=== PATIENT | female | born 1980 | race Caucasian/White ===

== ENCOUNTER 2017-12-04 15:37 | Inpatient (IN) | payer OTHER ==
[~2017-12-04] VITALS: Ht 175.3 cm; Wt 95.5 kg
[~2017-12-04 15:37] MED LIST: BUPIVACAINE 0.25% ONE; FENTANYL PF 100 MCG/2ML ONE; FENTANYL/BUPIV./NS/PF 250 ML EPIDCONT ONE; LIDOCAINE/PF 1.5%-EPI 1:200K, 30ML ONE
[2017-12-04] MEDS ORDERED: D5%-LACTATED RINGERS 1,000 ML IV SCH (15:57)
[2017-12-04] MEDS: LACTATED RINGERS 1,000 ML IV SCH (15:57)
[2017-12-04] MEDS ORDERED: OXYTOCIN 30U/ 0.9% NaCL 500ML 500 ML IV ONE (15:57)
[2017-12-04 16:00] VITALS: BP 117/75
[2017-12-04] MEDS ORDERED: FENTANYL PF 100 MCG/2ML IV PRN (16:00)
[2017-12-04] MEDS ORDERED: ONDANSETRON 2MG/ML, 2ML IVPush PRN (16:00)
[2017-12-04] MEDS ORDERED: MISOPROSTOL 25 MCG TABLET VG PRN (16:00)
[2017-12-04] MEDS ORDERED: MISOPROSTOL 25 MCG TABLET ONE (16:15)
[2017-12-04 16:24] LABS: BASOPHILS # (AUTO) 0.06 x10^3/uL (0-0.1); BASOPHILS % (AUTO) 1 % (0-1); EOSINOPHILS # (AUTO) 0.04 x10^3/uL (0-0.4); EOSINOPHILS % (AUTO) 0 % (1-7); LYMPHOCYTES # (AUTO) 1.74 x10^3/uL (1-3.4); LYMPHOCYTES % (AUTO) 15 % (22-44); MD NO; MEAN CORPUSCULAR HEMOGLOBIN 31.7 pg (27.0-34.8); MEAN CORPUSCULAR HGB CONC 33.6 g/dL (32.4-35.8); MEAN CORPUSCULAR VOLUME 94.3 fL (80-100); MEAN PLATELET VOLUME 8.6 fL (7.4-10.4); MONOCYTES # (AUTO) 0.62 x10^3/uL (0.2-0.8); MONOCYTES % (AUTO) 6 % (2-9); NEUTROPHILS # (AUTO) 8.83 x10^3/uL (1.8-6.8); NEUTROPHILS % (AUTO) 78 % (42-75); PLATELET COUNT 233 x10^3/uL (130-400); RED BLOOD COUNT 3.84 x10^6/uL (3.82-5.3); RED CELL DISTRIBUTION WIDTH 13.6 % (9.6-15.2)
[2017-12-04] MEDS: PLEASE ENTER HEIGHT AND WEIGHT MC SCH (16:30)
[2017-12-04] MEDS: PLEASE ENTER ALLERGIES MC SCH (16:30)
[2017-12-04] MEDS ORDERED: OXYTOCIN 30U/ 0.9% NaCL 500ML 500 ML ONE (16:48)
[2017-12-04] MEDS ORDERED: NEWBORN KIT ONE (16:48)
[2017-12-04] MEDS ORDERED: MISOPROSTOL 200 MCG TABLET ONE (16:48)
[2017-12-04] MEDS ORDERED: PREN-3 PO (16:53)
[2017-12-04 19:21] VITALS: BP 123/74
[2017-12-04 19:37] LABS: ALANINE AMINOTRANSFERASE 13 U/L (12-78); ALBUMIN 2.6 g/dL (3.4-5.0); ANION GAP 12 mmol/L (5-15); CALCIUM 8.5 mg/dL (8.5-10.1); CHLORIDE 106 mmol/L (98-107); CREATININE 0.79 mg/dL (0.55-1.02)
[2017-12-04 19:40] LABS: ALKALINE PHOSPHATASE 182 U/L (45-117); BILIRUBIN,TOTAL 0.4 mg/dL (0.2-1.0); TOTAL PROTEIN 7.2 g/dL (6.4-8.2)
[2017-12-05] MEDS: PLEASE ENTER HEIGHT AND WEIGHT MC SCH ×2 (00:30→08:30)
[2017-12-05] MEDS: PLEASE ENTER ALLERGIES MC SCH ×2 (00:30→08:30)
[2017-12-05] MEDS ORDERED: FENTANYL PF 100 MCG/2ML ONE ×3 (05:09→07:12)
[2017-12-05] MEDS: FENTANYL PF 100 MCG/2ML IVPush PRN ×2 (05:14→06:34)
[2017-12-05] MEDS: LACTATED RINGERS 1,000 ML IV SCH ×4 (07:02→17:51)
[2017-12-05] MEDS ORDERED: FENTANYL/BUPIV./NS/PF 250 ML EPIDCONT ONE (07:12)
[2017-12-05] MEDS ORDERED: BUPIVACAINE 0.25% ONE (07:12)
[2017-12-05] MEDS ORDERED: FENTANYL/BUPIV./NS/PF 250 ML EPIDCONT SCH (09:51)
[2017-12-05] MEDS ORDERED: ONDANSETRON 2MG/ML, 2ML IVPush PRN (10:00)
[2017-12-05] MEDS ORDERED: EPHEDRINE 50 MG/ML, 1ML IVPush PRN (10:00)
[2017-12-05] MEDS ORDERED: LACTATED RINGERS 1,000 ML IVBOLUS PRN (10:00)
[2017-12-05] MEDS ORDERED: OXYcodone/APAP 5/325MG TABLET PO PRN ×2 (16:00)
[2017-12-05] MEDS ORDERED: CARBOPROST TROMETHAMINE 250 MCG/ML, 1ML IM PRN (16:00)
[2017-12-05] MEDS ORDERED: MISOPROSTOL 200 MCG TABLET PR PRN (16:00)
[2017-12-05] MEDS ORDERED: ACETAMINOPHEN 325 MG TABLET PO PRN (16:00)
[2017-12-05] MEDS ORDERED: DIPH,PERTUSS(ACELL),TET VAC/PF NC IM-VACC PRN (16:00)
[2017-12-05] MEDS ORDERED: MEASLES,MUMPS&RUBELLA VACC/PF 0.5 ML SQ-VACC PRN (16:00)
[2017-12-05] MEDS ORDERED: OXYTOCIN 30U/ 0.9% NaCL 500ML 500 ML ONE (17:09)
[2017-12-05] MEDS: OXYTOCIN 30U/ 0.9% NaCL 500ML 500 ML IV SCH (17:11)
[2017-12-05 18:00] VITALS: BP 120/78
[2017-12-05] MEDS: IBUPROFEN 600 MG TABLET PO PRN (18:19)
[2017-12-05 19:15] VITALS: BP 121/75
[2017-12-05 20:30] VITALS: BP 103/64
[2017-12-05 23:19] LABS: MEAN CORPUSCULAR HEMOGLOBIN 31.8 pg (27.0-34.8); MEAN CORPUSCULAR VOLUME 93.8 fL (80-100); MEAN PLATELET VOLUME 8.2 fL (7.4-10.4); PLATELET COUNT 184 x10^3/uL (130-400); RED CELL DISTRIBUTION WIDTH 13.6 % (9.6-15.2)
[2017-12-05 23:46] LABS: MD YES
[2017-12-05 23:49] LABS: <PLATELET ESTIMATE> ADEQUATE; <PLT MORPHOLOGY> NORMAL PLT MORPH; <RBC MORPHOLOGY> NORMAL; BAND#(MANUAL) 0.58 x10^3/uL; BANDS%(MANUAL) 3 % (0-7); EOS#(MANUAL) 0.19 x10^3/uL (0.0-0.4); EOS% (MANUAL) 1 % (1-7); LYMPH#(MANUAL) 1.54 x10^3/uL (1-3.4); LYMPHS% (MANUAL) 8 % (22-44); MONOS#(MANUAL) 0.58 x10^3/uL (0.3-2.7); MONOS% (MANUAL) 3 % (2-9); SEG#(MANUAL) 16.32 x10^3/uL (1.8-6.8); SEGS% (MANUAL) 85 % (42-75)
[2017-12-06 00:15] VITALS: BP 106/64
[2017-12-06] MEDS: OXYTOCIN 30U/ 0.9% NaCL 500ML 500 ML IV SCH ×2 (01:40→11:40)
[2017-12-06] MEDS: IBUPROFEN 600 MG TABLET PO PRN ×2 (03:22→09:23)
[2017-12-06] MEDS: DOCUSATE 100 MG CAPSULE PO PRN ×2 (03:22→09:23)
[2017-12-06 04:16] VITALS: BP 110/71
[2017-12-06 07:45] VITALS: BP 117/69
[2017-12-06] MEDS ORDERED: PRENATAL VIT/IRON/FA 1 EACH TABLET PO SCH (09:00)
== END 2017-12-06 17:53 | disposition home or self-care (01) | DRG 775 ==
LOC: LDIP 15:37 → 2NW 12-05 17:58
PROVIDERS: ADMIT Obstetrics & Gynecology Maternal & Fetal Medicine; ATTEND Obstetrics & Gynecology Maternal & Fetal Medicine
PROC: 10E0XZZ Delivery of Products of Conception, External Approach (ICD-10-PCS; principal; 2017-12-05)
PROC: 0KQM0ZZ Repair Perineum Muscle, Open Approach (ICD-10-PCS; 2017-12-05)
PROC: 3E0R3BZ Introduction of Anesthetic Agent into Spinal Canal, Percutaneous Approach (ICD-10-PCS; 2017-12-05)
PROC: 00HU33Z Insertion of Infusion Device into Spinal Canal, Percutaneous Approach (ICD-10-PCS; 2017-12-05)
DX: O13.4 Gestational [pregnancy-induced] hypertension without significant proteinuria, complicating childbirth (principal); O70.1 Second degree perineal laceration during delivery; Z37.0 Single live birth; Z3A.40 40 weeks gestation of pregnancy
CPT/HCPCS: 36415; 76815; 80053; 85025; 86850; 86900; J3010; J3490; J2590; J7120; J7121

== ENCOUNTER 2021-03-09 01:09 | Inpatient (IN) | payer OTHER ==
[~2021-03-09] VITALS: Ht 175.3 cm; Wt 90.9 kg
[~2021-03-09 01:09] MED LIST changes: -BUPIVACAINE 0.25% ONE; -FENTANYL PF 100 MCG/2ML ONE; -FENTANYL/BUPIV./NS/PF 250 ML EPIDCONT ONE; -LIDOCAINE/PF 1.5%-EPI 1:200K, 30ML ONE; +PREN-3 PO
[2021-03-09 22:56] VITALS: BP 114/67
[2021-03-09] MEDS ORDERED: OXYTOCIN 30U/ 0.9% NaCL 500ML 500 ML IV ONE (23:00)
[2021-03-09] MEDS ORDERED: FENTANYL PF 100 MCG/2ML IVPush PRN (23:00)
[2021-03-09] MEDS ORDERED: ONDANSETRON 2MG/ML, 2ML IVPush PRN (23:00)
[2021-03-09] MEDS ORDERED: FENTANYL PF 100 MCG/2ML IV PRN (23:00)
[2021-03-09] MEDS ORDERED: TERBUTALINE 1 MG/ML, 1ML IVPush PRN (23:00)
[2021-03-09] MEDS ORDERED: SODIUM CHLORIDE FLUSH 10ML SYR IVF PRN (23:00)
[2021-03-09] MEDS ORDERED: TERBUTALINE 1 MG/ML, 1ML SQ PRN (23:00)
[2021-03-09 23:10] LABS: BASOPHILS % (AUTO) 1 % (0-1); EOSINOPHILS % (AUTO) 0 % (1-7); LYMPHOCYTES % (AUTO) 17 % (22-44); MEAN CORPUSCULAR HEMOGLOBIN 33.2 pg (27.0-34.8); MEAN CORPUSCULAR HGB CONC 35.1 g/dL (32.4-35.8); MEAN PLATELET VOLUME 8.4 fL (7.4-10.4); MONOCYTES % (AUTO) 8 % (2-9); NEUTROPHILS % (AUTO) 75 % (42-75); PLATELET COUNT 196 x10^3/uL (130-400); RED BLOOD COUNT 3.43 x10^6/uL (3.82-5.3); RED CELL DISTRIBUTION WIDTH 13.8 % (9.6-15.2)
[2021-03-09] MEDS: MISOPROSTOL 25 MCG TABLET VG PRN (23:35)
[2021-03-10] MEDS: MISOPROSTOL 25 MCG TABLET VG PRN (04:20)
[2021-03-10] MEDS ORDERED: NEWBORN KIT ONE (04:32)
[2021-03-10] MEDS ORDERED: OXYTOCIN 30U/ 0.9% NaCL 500ML 500 ML ONE (09:57)
[2021-03-10] MEDS ORDERED: OXYTOCIN 30U/ 0.9% NaCL 500ML 500 ML IV PRN (10:00)
[2021-03-10] MEDS: LACTATED RINGERS 1,000 ML IV SCH ×2 (10:10→13:45)
[2021-03-10] MEDS ORDERED: MISOPROSTOL 200 MCG TABLET ONE (12:47)
[2021-03-10] MEDS ORDERED: LIDOCAINE 1%, 20ML ONE (12:47)
[2021-03-10] MEDS ORDERED: BUPIVACAINE 0.25% ONE (13:28)
[2021-03-10] MEDS ORDERED: LACTATED RINGERS 1,000 ML IVBOLUS ONE (13:30)
[2021-03-10] MEDS ORDERED: FENTANYL PF 500 MCG, BUPIVACAINE/PF 0.5%, 30ML 62.5 ML in SODIUM CHLORIDE 0.9% 177.5 ML EPIDCONT SCH (14:00)
[2021-03-10] MEDS ORDERED: FENTANYL/BUPIV./NS/PF 250 ML EPIDCONT SCH ×2 (14:00→15:30)
[2021-03-10] MEDS ORDERED: CARBOPROST TROMETHAMINE 250 MCG/ML, 1ML IM PRN (15:30)
[2021-03-10] MEDS ORDERED: SIMETHICONE 80 MG CHEW TAB PO PRN (15:30)
[2021-03-10] MEDS ORDERED: DIPH,PERTUSS(ACELL),TET VAC/PF NC IM-VACC PRN (15:30)
[2021-03-10] MEDS ORDERED: DIPHENHYDRAMINE 50 MG/ML, 1ML IVPush PRN (15:30)
[2021-03-10] MEDS ORDERED: DOCUSATE 100 MG CAPSULE PO PRN (15:30)
[2021-03-10] MEDS ORDERED: OXYcodone/APAP 5/325MG TABLET PO PRN ×2 (15:30)
[2021-03-10] MEDS ORDERED: METHYLERGONOVINE 0.2 MG/ML IM PRN (15:30)
[2021-03-10] MEDS ORDERED: NALOXONE 0.4 MG/ML, 1ML IVPush PRN (15:30)
[2021-03-10] MEDS ORDERED: MISOPROSTOL 200 MCG TABLET PR PRN (15:30)
[2021-03-10] MEDS: OXYTOCIN 30U/ 0.9% NaCL 500ML 500 ML IV SCH (15:30)
[2021-03-10] MEDS ORDERED: ACETAMINOPHEN 325 MG TABLET PO PRN ×2 (15:30)
[2021-03-10] MEDS ORDERED: ONDANSETRON 2MG/ML, 2ML IVPush PRN (15:30)
[2021-03-10] MEDS ORDERED: EPHEDRINE 50 MG/ML, 1ML IVPush PRN (15:30)
[2021-03-10] MEDS ORDERED: LACTATED RINGERS 1,000 ML IVBOLUS PRN (15:30)
[2021-03-10] MEDS ORDERED: LACTATED RINGERS 1,000 ML IV SCH (15:30)
[2021-03-10 17:20] VITALS: BP 105/59
[2021-03-10 19:30] VITALS: BP 110/69
[2021-03-10] MEDS: IBUPROFEN 600 MG TABLET PO PRN (19:55)
[2021-03-10 23:17] LABS: BASOPHILS % (AUTO) 0 % (0-1); EOSINOPHILS % (AUTO) 0 % (1-7); LYMPHOCYTES % (AUTO) 12 % (22-44); MEAN CORPUSCULAR HGB CONC 34.4 g/dL (32.4-35.8); MEAN PLATELET VOLUME 8.6 fL (7.4-10.4); MONOCYTES % (AUTO) 7 % (2-9); NEUTROPHILS % (AUTO) 81 % (42-75); PLATELET COUNT 161 x10^3/uL (130-400); RED BLOOD COUNT 3.31 x10^6/uL (3.82-5.3); RED CELL DISTRIBUTION WIDTH 13.7 % (9.6-15.2)
[2021-03-11] VITALS: BP 100/65
[2021-03-11] MEDS: OXYTOCIN 30U/ 0.9% NaCL 500ML 500 ML IV SCH ×2 (01:30→11:30)
[2021-03-11 04:00] VITALS: BP 110/75
[2021-03-11] MEDS: IBUPROFEN 600 MG TABLET PO PRN (04:15)
[2021-03-11] MEDS: LACTATED RINGERS 1,000 ML IV SCH ×2 (05:30→13:30)
[2021-03-11 08:30] VITALS: BP 104/69
[2021-03-11] MEDS ORDERED: IBUP-1222 PO (08:58)
[2021-03-11] MEDS ORDERED: PRENATAL VIT/IRON/FA 1 EACH TABLET PO SCH (09:00)
[2021-03-11 12:26] VITALS: BP 104/69
== END 2021-03-11 16:00 | disposition home or self-care (01) | DRG 807 ==
LOC: LDIP 22:23 → 2NW 03-10 17:12
PROVIDERS: ADMIT Obstetrics & Gynecology Maternal & Fetal Medicine; ATTEND Obstetrics & Gynecology Maternal & Fetal Medicine
PROC: 3E0P7VZ Introduction of Hormone into Female Reproductive, Via Natural or Artificial Opening (ICD-10-PCS; 2021-03-09)
PROC: 10E0XZZ Delivery of Products of Conception, External Approach (ICD-10-PCS; principal; 2021-03-10)
PROC: 0KQM0ZZ Repair Perineum Muscle, Open Approach (ICD-10-PCS; 2021-03-10)
PROC: 3E0R3BZ Introduction of Anesthetic Agent into Spinal Canal, Percutaneous Approach (ICD-10-PCS; 2021-03-10)
PROC: 00HU33Z Insertion of Infusion Device into Spinal Canal, Percutaneous Approach (ICD-10-PCS; 2021-03-10)
DX: O99.02 Anemia complicating childbirth (principal); Z37.0 Single live birth; Z3A.39 39 weeks gestation of pregnancy; O70.1 Second degree perineal laceration during delivery; D50.9 Iron deficiency anemia, unspecified; Z20.822 Contact with and (suspected) exposure to COVID-19
CPT/HCPCS: 36415; 85025; 86592; 86850; 86900; 87635; G0378; J2590; J7120